=== PATIENT | female | born 1995 | race Caucasian/White ===

== ENCOUNTER 2016-08-06 03:28 | Emergency (ER) | payer OTHER ==
[~2016-08-06] VITALS: Ht 167.6 cm; Wt 54.5 kg
[2016-08-06 03:32] VITALS: BP 122/85; PULSE 111; RESP 16; O2SAT 98
--- NOTE | 2016-08-06 04:04 | ED.REPORT ---
HPI-Abd Pain F Under 38 Date of Service Aug 06, 2016 ED Provider: Yamil Reyes MD This is a 20 year old female presenting to the emergency department complaining of sudden onset vomiting that began 5 hours ago. Associated symptoms include nausea, diarrhea, abdominal cramping, chills, and dysuria. Denies hematemesis, hematochezia, constipation, or headache. Denies recent sick contacts. Nursing Notes Stated Complaint: FLU SYMPTOMS Chief Complaint: Female Abdominal Pain Nursing Notes Reviewed: Yes Allergies: Coded Allergies: No Known Allergies (Unverified , 08/06/16) General Time Seen by MD: 04:01 Chief Complaint Vomiting moderate Hx Obtained From: Patient Arrived By: Walk-in Sudden in Onset?: Yes Onset Occurred: 5 - 8 hours ago Symptom Duration: Since onset Severity: Current: Mild Pertinent Negative: Pt denies other symptoms Recent Healthcare: No recent doctor visit, No recent hospitalization Similar Sx Previous: No Past Medical History Past Medical History Denies Past Surgical History Denies Social History Other Social History: Good social support Ambulatory Status Independent Review of Systems Constitutional: Reports: Chills, Denies: Fever Respiratory: Denies: Non-productive cough, Shortness of breath GI: Reports: Abdominal pain, Diarrhea, Nausea, Vomiting, Denies: Hematemesis, Hematochezia Female: Reports: Dysuria Complete sys rev & neg: except as marked. Physical Exam Initial Vital Signs Vital Signs (First) Date Time Temp Pulse Resp B/P Pulse Ox O2 Delivery O2 Flow Rate FiO2 08/06/16 03:32 36.5 111 16 122/85 98 Room Air Initial VS: Reviewed, Vital signs abnormal Head / Eyes: Atraumatic, Normocephalic, PERRL ENT: Mucous membranes moist, Conjunctiva normal, No scleral icterus Neck: Supple, Non-tender, Full range of motion Extremities: Vascular intact, Neuro intact, No swelling, No tenderness Skin: Warm, Dry, No cyanosis Neurologic: Alert, Oriented, Nonfocal Psychiatric: Mood/affect normal, Behavior normal, Normal thought content General/Constitutional: Awake, Alert Respiratory / Chest: Breath sounds NL, Breath sounds = bilat, No respiratory distress, No rales, No rhonchi, No wheezing Cardiovascular: Heart rate NL, Regular rhythm, Heart sounds NL, Peripheral circulation NL Tenderness/Guarding/Rebound: Positive: Tender diffuse Back: Inspection NL, Non-tender, No CVA tenderness Interpretation & Diagnostics Lab Results Interpretation Test 08/06/16 04:01 08/06/16 04:30 Hold Purple Top Tube Received (Received) Hold Blue Top Tube Received (Received) Hold Red Top Tube Received (Received) Hold [place] Top Tube Received (Received) Hold Urine Received (Received) Re-Eval/Medical Decision Med Decision/Clinical Course Uncomplicated nausea and vomiting with dehydration. No evidence of serious or surgical disease at this point. She responded nicely to Zofran and will be discharged with same. Counseled Regarding: Diagnosis, Lab results, Need for follow-up, When/why to return to ED Discharge & Departure Primary Impression: Nausea & vomiting Vomiting type: unspecified Vomiting Intractability: non-intractable Qualified Code: R11.2 - Nausea with vomiting, unspecified Disposition: Home Discharge Condition All VS Reviewed: Yes Condition: Stable Patient Instructions: Acute Nausea and Vomiting (ED) Additional Instructions: Ondansetron (Zofran) 4-8 mg dissolved orally 3-4 times a day, #4 prepack dispensed and #20 prescription written. Small amounts of clear liquids frequently. Follow-up with your regular doctor as needed for persistent symptoms.. Scribe Attestation Portions of this note were transcribed by Delores Kelly. I, Dr. Reyes personally performed the history, physical exam and medical decision-making; I reviewed and confirmed the accuracy of the information in the transcribed note. Signed by: tamera Calderón. 08/05/2016, 05:00. Yamil Reyes MD Aug 06, 2016 04:04 DELORES KELLY Aug 06, 2016 04:11
[2016-08-06] MEDS ORDERED: Ondansetron 2 mg/mL 2 mL Inj ONE (04:18)
[2016-08-06] MEDS ORDERED: Ondansetron 2 mg/mL 2 mL Inj IVPUSH PRN (04:25)
[2016-08-06] MEDS ORDERED: 0.9% Sodium Chloride 1,000 ML IV ONE (05:10)
[2016-08-06] MEDS ORDERED: _Ondansetron ODT 4 mg Tablet PO PRN (05:10)
[2016-08-06 06:02] VITALS: BP 118/84; PULSE 98; RESP 16; O2SAT 98
== END 2016-08-06 06:04 | disposition home or self-care (01) ==
LOC: SED 03:28
DX: E86.0 Dehydration (principal); R10.9 Unspecified abdominal pain; R68.83 Chills (without fever); R30.0 Dysuria
CPT/HCPCS: 81025; 96360; 99284; J7030